=== PATIENT | male | born 1985 | race Two or more races ===

== ENCOUNTER 2025-04-02 15:27 | Emergency (ER) | payer OTHER ==
[2025-04-02] MEDS ORDERED: Lidocaine 1% (PF) 30 ML VIAL ONE (17:10)
[2025-04-02] MEDS ORDERED: Boostrix 0.5 ML (Tdap) VIAL (>/=7 yrs of age) ONE (17:45)
[2025-04-02] MEDS ORDERED: Bacitracin 1 PK ONE (17:49)
== END 2025-04-02 18:30 | disposition home or self-care (01) ==
LOC: CSHERS 15:27
DX: S81.012A Laceration without foreign body, left knee, initial encounter (principal); S80.211A Abrasion, right knee, initial encounter; V28.09XA Other motorcycle driver injured in noncollision transport accident in nontraffic accident, initial encounter; Z23 Encounter for immunization
CPT/HCPCS: 12032; 90471; 90715